=== PATIENT | male | born 1965 | race Caucasian/White ===

== ENCOUNTER 2019-12-03 14:12 | Inpatient (IN) | payer OTHER ==
[2019-12-03] MEDS ORDERED: Acetaminophen 500 MG TAB ONE (14:29)
[2019-12-03] MEDS ORDERED: Cefepime 2 GM VIAL ONE (14:29)
[2019-12-03] MEDS ORDERED: Vancomycin 1 GM/200 ML BAG ONE (14:29)
[2019-12-03 14:55] LABS: Hemoglobin 16.6 g/dL (14.0-18.0); Mean Corpuscular Hemoglobin 28.7 pg (27.0-31.0); Mean Corpuscular Volume 89.7 fL (78.0-98.0); Mean Platelet Volume 7.6 fL (7.4-10.4); Platelet Count 450 thou/uL (130-400); RBC Distribution Width 12.1 % (11.5-14.5); Red Blood Cell (RBC) Count 5.79 mill/uL (4.70-6.10); White Blood Cell (WBC) Count 15.1 thou/uL (4.8-10.8)
[2019-12-03 15:11] LABS: Band 21 % (5-11); Eosinophils 1 % (0-10); Lymphocytes 5 % (21-51); MDiff Complete? YES; Metamyelocyte 1 % (0-0); Monocytes 7 % (0-10); Neutrophil 65 % (42-75); Platelet Morphology Comment Appears Increased; RBC Morphology Normal
[2019-12-03 15:24] LABS: ALT (SGPT) 85 U/L (8-55); AST (SGOT) 75 U/L (5-34); Albumin 3.6 g/dL (3.5-5.0); Alkaline Phosphatase 110 U/L (40-110); Anion Gap 18 mmol/L (10-20); BUN (Urea Nitrogen) 21 mg/dL (8.4-25.7); Bilirubin, Total 1.5 mg/dL (0.2-1.2); Calc. Creatinine Clearance 0 mL/min (70-130); Calcium 9.5 mg/dL (7.8-10.44); Carbon Dioxide 23 mmol/L (22-29); Chloride 99 mmol/L (98-107); Estimated GFR-MDRD 65; Globulin 4.6 g/dL (2.4-3.5); Glucose 109 mg/dL (70-105); Potassium 3.7 mmol/L (3.5-5.1); Protein, Total 8.2 g/dL (6.0-8.3); Sodium 136 mmol/L (136-145)
--- NOTE | 2019-12-03 16:29 | PDOC.FPRHP ---
- History of Present Illness Chief Complaint: cough History of Present Illness: 54yo previously healthy M presents with 14 day hx of cough, fever, ( consistently above 101), generalized weakness, and decrease PO solid intake. Pt denies SOB or CP. 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 Denies any other related symptoms. Tylenol is somewhat palliating. No other transforming factors. ED Course: Pt was given 1g Tylenol PO, 1L NS IV, 2g Cefepime IV, and 1g Vanc IV - Allergies/Adverse Reactions Allergies Allergy/AdvReac Type Severity Reaction Status Date / Time No Known Allergies Allergy Unverified 12/03/19 20:18 - Home Medications Medication Instructions Recorded Confirmed Type Acetaminophen [Tylenol Extra 1,000 mg PO Q6H PRN tab 12/06/19 Rx Strength] Amoxicillin 1,000 mg PO TID #12 tablet 12/06/19 Rx Azithromycin 250 mg PO DAILY #2 tablet 12/06/19 Rx Benzonatate [Tessalon] 100 mg PO Q4H PRN #36 cap 12/06/19 Rx - History PMHx: none PSHx: Hernia repair FHx: non contributory Social: denies TAD Allergies: NKDA CODE: FULL - Review of Systems General: reports: fever/chills, weight/appetite/sleep changes Eyes: denies: eye pain, vision changes ENT: denies: nasal congestion, rhinorrhea Respiratory: reports: cough, congestion. denies: shortness of breath Cardiovascular: denies: chest pain, palpitation Gastrointestinal: denies: nausea, vomiting Genitourinary: denies: incontinence, dysuria Skin: denies: rashes, lesions Musculoskeletal: denies: pain, tenderness Neurological: denies: syncope, seizure Psychological: denies: anxiety, depression - Vital signs BP: 138/88 HR: 77 RR: 24 Tmax: 100.4 Pox: 93% on 3L Wt: 90.72kg - Physical Exam Constitutional: awake, alert and oriented, other (mild distress, diaphoretic) HEENT: EOMI, grossly normal vision, grossly normal hearing Neck: supple, trachea midline Chest: no lesions Heart: RRR, normal S1/S2 Lungs: no wheezing -Lungs: bilateral inspiratory and expiratory crackles diffusely, egophany wnl Abdomen: soft, non-tender Musculoskeletal: normal structure, normal tone Neurological: no focal deficit, normal sensation Skin: no rash/lesions, good turgor Heme/Lymphatic: no unusual bruising or bleeding, no purpura Psychiatric: normal mood and affect, good judgment and insight FMR H&P: Results - Labs Result Diagrams: 12/06/19 06:31 12/06/19 06:31 Lab results: WBC 15.1 thou/uL (4.8-10.8) H 12/03/19 14:38 Hgb 16.6 g/dL (14.0-18.0) 12/03/19 14:38 Hct 51.9 % (42.0-52.0) 12/03/19 14:38 MCV 89.7 fL (78.0-98.0) 12/03/19 14:38 Plt Count 450 thou/uL (130-400) H 12/03/19 14:38 Band Neuts % (Manual) 21 % (5-11) H 12/03/19 14:38 Sodium 136 mmol/L (136-145) 12/03/19 14:38 Potassium 3.7 mmol/L (3.5-5.1) 12/03/19 14:38 Chloride 99 mmol/L (98-107) 12/03/19 14:38 Carbon Dioxide 23 mmol/L (22-29) 12/03/19 14:38 BUN 21 mg/dL (8.4-25.7) 12/03/19 14:38 Creatinine 1.16 mg/dL (0.7-1.3) 12/03/19 14:38 Glucose 109 mg/dL (70-105) H 12/03/19 14:38 Lactic Acid 1.5 mmol/L (0.5-2.2) 12/03/19 14:38 Calcium 9.5 mg/dL (7.8-10.44) 12/03/19 14:38 Total Bilirubin 1.5 mg/dL (0.2-1.2) H 12/03/19 14:38 AST 75 U/L (5-34) H 12/03/19 14:38 ALT 85 U/L (8-55) H 12/03/19 14:38 Alkaline Phosphatase 110 U/L (40-110) 12/03/19 14:38 Serum Total Protein 8.2 g/dL (6.0-8.3) 12/03/19 14:38 Albumin 3.6 g/dL (3.5-5.0) 12/03/19 14:38 - EKG Interpretation EKG: NSR at rate of 100, no ST changes noted. FMR H&P: A/P - Problem List (1) Sepsis with acute hypoxic respiratory failure Status: Acute Code(s): A41.9 - SEPSIS, UNSPECIFIED ORGANISM; R65.20 - SEVERE SEPSIS WITHOUT SEPTIC SHOCK; J96.01 - ACUTE RESPIRATORY FAILURE WITH HYPOXIA - Plan Sepsis and hypoxic respiratory failure 2/2 suspected COVID-19 vs. CAP A- requiring 3L NC in ER. Physical exam impressive as well as CXR with infiltrate and pattern characteristic of covid infection. Labs significant for leukocytosis with lymphopenia. Will treat for CAP and test for COVID-19. pt got cefepime 1L IVF and vanc in ER P- azithro and rocephin -PO hydration, BP stable -BCx -RVP -COVID-19 -covid labs: ddimer, ferritin, LDH, CRP, mag, phos, procal CODE: FULL dispo: inpt, medical IVF: KVO diet: regular Addendum - Attending - Attending Attestation Date/Time: 12/27/192052 I personally evaluated the patient and discussed the management with Dr. Hugo on 12/03/19. I agree with the History, Examination, Assessment and Plan documented above with any addition or exceptions noted below. 54 y.o. WM w/o sig PMH here with cough, fever, congestion and low SaO2 on RA. Will treat for atypical PNA and r/o COVID as PUI.
[2019-12-03 20:30] VITALS: BMI 26.6
[2019-12-03 20:54] LABS: INR-International Normal Ratio 1.2; PTT 34.3 SEC (22.9-36.1); Prothrombin Time 15.3 SEC (12.0-14.7)
[2019-12-03 20:55] LABS: D-Dimer Test 1.92 *mcg/mL (0.27-0.43)
[2019-12-03 21:06] LABS: Magnesium 2.6 mg/dL (1.6-2.6); Phosphorus 3.9 mg/dL (2.3-4.7)
[2019-12-03] MEDS: cefTRIAXone\\ROCEPHIN 1 GM in Sodium Chloride 0.9% 100 ML IVPB SCH (21:15)
[2019-12-03] MEDS: Azithromycin 500 MG in Sodium Chloride 0.9% 250 ML 250 ML IVPB SCH (21:15)
[2019-12-03] MEDS: Benzonatate 100 MG CAP PO PRN (23:37)
[2019-12-03] MEDS: Acetaminophen 500 MG TAB PO PRN (23:37)
[2019-12-04 02:54] LABS: Strep pneumo Urine Ag NEGATIVE (NEGATIVE)
[2019-12-04 02:55] LABS: Legionella Urinary Ag Negative (Negative)
[2019-12-04 05:48] LABS: Anion Gap 12 mmol/L (10-20); BUN (Urea Nitrogen) 18 mg/dL (8.4-25.7); Calc. Creatinine Clearance 107 mL/min (70-130); Calcium 8.6 mg/dL (7.8-10.44); Carbon Dioxide 26 mmol/L (22-29); Chloride 103 mmol/L (98-107); Estimated GFR-MDRD 80; Glucose 104 mg/dL (70-105); Potassium 4.2 mmol/L (3.5-5.1); Sodium 137 mmol/L (136-145)
[2019-12-04 06:04] LABS: #Eosinphils 0.1 thou/uL (0.0-0.7); #Lymphocytes 0.8 thou/uL (1.20-3.40); #Monocytes 0.9 thou/uL (0.11-0.59); #Neutrophils 9.5 thou/uL (1.40-6.50); %Basophils 0.4 % (0.0-1.0); %Monocytes 8.1 % (0.0-10.0); %Neutrophils 83.6 % (42.0-75.0); Hemoglobin 14.5 g/dL (14.0-18.0); Mean Corpuscular HGB CONC 32.2 g/dL (32.0-36.0); Mean Corpuscular Volume 90.3 fL (78.0-98.0); Mean Platelet Volume 7.5 fL (7.4-10.4); Platelet Count 348 thou/uL (130-400); White Blood Cell (WBC) Count 11.4 thou/uL (4.8-10.8)
[2019-12-04] MEDS: Enoxaparin Sodium 40 MG/0.4 ML SYRINGE SC SCH (08:57)
[2019-12-04] MEDS: Benzonatate 100 MG CAP PO PRN ×3 (08:57→20:52)
--- NOTE | 2019-12-04 09:17 | PDOC.FM ---
- Subjective Subjective: stable from yesterday, reports no new problems, improvement on subjective fevers , no sob, stable cough. - Objective Vital Signs & Weight: Vital Signs (12 hours) Temp Pulse Resp BP Pulse Ox 12/04/19 04:00 98.5 F 73 18 93 L 12/04/19 02:32 98.5 F 83 18 91 L 12/04/19 00:40 101 F H 94 18 90 L 12/03/19 23:57 101.9 F H 96 18 148/89 H 91 L 12/03/19 21:39 95 Weight Weight 88.904 kg Result Diagrams: 12/06/19 06:31 12/06/19 06:31 Phys Exam - Physical Examination Constitutional: NAD HEENT: moist MMs, sclera anicteric Neck: supple, full ROM Respiratory: no wheezing bilat diffuse crackles Cardiovascular: RRR, no significant murmur Gastrointestinal: soft, non-tender Musculoskeletal: no edema, pulses present Neurological: non-focal, normal sensation Psychiatric: normal affect, A&O x 3 Skin: no rash, normal turgor Dx/Plan (1) Sepsis with acute hypoxic respiratory failure Code(s): A41.9 - SEPSIS, UNSPECIFIED ORGANISM; R65.20 - SEVERE SEPSIS WITHOUT SEPTIC SHOCK; J96.01 - ACUTE RESPIRATORY FAILURE WITH HYPOXIA Status: Acute - Plan Plan: Sepsis and hypoxic respiratory failure 2/2 suspected COVID-19 vs. CAP A- stable. requiring 3L NC. Physical exam impressive as well as CXR with infiltrate and pattern characteristic of covid infection. Labs significant for leukocytosis with lymphopenia. pt got cefepime 1L IVF and vanc in ER P- azithro and rocephin -PO hydration, BP stable -f/u BCx -f/u COVID-19 CODE: FULL IVF: KVO diet: regular Addendum - Attending - Attending Attestation Date/Time: 12/27/19 1950 I personally evaluated the patient and discussed the management with Dr. Hugo on 12/04/19. I agree with the History, Examination, Assessment and Plan documented above with any addition or exceptions noted below. Fever w/in last 24 hrs. Remains on O2 dependent to keep SaO2. COVID pending. Continue current care.
[2019-12-04] MEDS: Acetaminophen 500 MG TAB PO PRN ×3 (09:27→20:52)
[2019-12-04] MEDS: Azithromycin 500 MG in Sodium Chloride 0.9% 250 ML 250 ML IVPB SCH (20:52)
[2019-12-04] MEDS: cefTRIAXone\\ROCEPHIN 1 GM in Sodium Chloride 0.9% 100 ML IVPB SCH (20:52)
[2019-12-05] MEDS: Benzonatate 100 MG CAP PO PRN ×5 (04:48→22:07)
[2019-12-05 06:36] LABS: #Eosinphils 0.2 thou/uL (0.0-0.7); #Lymphocytes 0.7 thou/uL (1.20-3.40); #Monocytes 0.7 thou/uL (0.11-0.59); #Neutrophils 7.5 thou/uL (1.40-6.50); %Basophils 0.2 % (0.0-1.0); %Eosinophils 2.4 % (0.0-10.0); %Lymphocytes 7.3 % (21.0-51.0); %Monocytes 7.9 % (0.0-10.0); %Neutrophils 82.1 % (42.0-75.0); Hemoglobin 14.4 g/dL (14.0-18.0); Mean Corpuscular HGB CONC 32.7 g/dL (32.0-36.0); Mean Corpuscular Hemoglobin 29.6 pg (27.0-31.0); Mean Corpuscular Volume 90.6 fL (78.0-98.0); Mean Platelet Volume 7.2 fL (7.4-10.4); Platelet Count 355 thou/uL (130-400); Red Blood Cell (RBC) Count 4.87 mill/uL (4.70-6.10); White Blood Cell (WBC) Count 9.1 thou/uL (4.8-10.8)
[2019-12-05 06:59] LABS: Anion Gap 15 mmol/L (10-20); BUN (Urea Nitrogen) 17 mg/dL (8.4-25.7); Calc. Creatinine Clearance 126 mL/min (70-130); Calcium 8.8 mg/dL (7.8-10.44); Carbon Dioxide 25 mmol/L (22-29); Chloride 103 mmol/L (98-107); Estimated GFR-MDRD Greater than 90; Glucose 93 mg/dL (70-105); Potassium 3.7 mmol/L (3.5-5.1); Sodium 139 mmol/L (136-145)
[2019-12-05] MEDS: Enoxaparin Sodium 40 MG/0.4 ML SYRINGE SC SCH (08:47)
--- NOTE | 2019-12-05 10:00 | PDOC.FM ---
- Subjective Subjective: Pt reports Sx are stable from admission, perhaps mild improvement, denies new problems - Objective Vital Signs & Weight: Vital Signs (12 hours) Temp Pulse Resp BP Pulse Ox 12/05/19 08:00 98.6 F 78 16 130/78 94 L 12/05/19 04:00 98.6 F 76 18 144/79 H 92 L 12/05/19 00:00 97.7 F 67 18 92 L Weight Admit Weight 88.904 kg Weight 88.904 kg Result Diagrams: 12/06/19 06:31 12/06/19 06:31 Phys Exam - Physical Examination Constitutional: NAD HEENT: moist MMs, sclera anicteric Neck: no nodes, no JVD Respiratory: no wheezing bilat diffuse crackles Cardiovascular: RRR, no significant murmur Gastrointestinal: soft, non-tender Musculoskeletal: no edema, pulses present Neurological: normal sensation, moves all 4 limbs Psychiatric: normal affect, A&O x 3 Skin: no rash, normal turgor Dx/Plan (1) Sepsis with acute hypoxic respiratory failure Code(s): A41.9 - SEPSIS, UNSPECIFIED ORGANISM; R65.20 - SEVERE SEPSIS WITHOUT SEPTIC SHOCK; J96.01 - ACUTE RESPIRATORY FAILURE WITH HYPOXIA Status: Acute - Plan Plan: Sepsis and hypoxic respiratory failure 2/2 suspected COVID-19 vs. CAP A- stable. requiring 3L NC. Physical exam impressive as well as CXR with infiltrate and pattern characteristic of covid infection. Labs significant for leukocytosis with lymphopenia. pt got cefepime 1L IVF and vanc in ER P- azithro and rocephin -PO hydration, BP stable -f/u BCx -f/u COVID-19 CODE: FULL IVF: KVO diet: regular Addendum - Attending - Attending Attestation Date/Time: 12/28/19 1105 I personally evaluated the patient and discussed the management with Dr. Hugo on 12/05/19. I agree with the History, Examination, Assessment and Plan documented above with any addition or exceptions noted below. Unchanged. On O2. COVID pending.
[2019-12-05] MEDS: Azithromycin 500 MG in Sodium Chloride 0.9% 250 ML 250 ML IVPB SCH (20:32)
[2019-12-05] MEDS: PROVENTIL INHALER 6.7 G (200 INHALATIONS) INH SCH (20:33)
[2019-12-05] MEDS: cefTRIAXone\\ROCEPHIN 1 GM in Sodium Chloride 0.9% 100 ML IVPB SCH (22:06)
[2019-12-06] MEDS: Benzonatate 100 MG CAP PO PRN ×2 (04:03→09:11)
[2019-12-06] MEDS: PROVENTIL INHALER 6.7 G (200 INHALATIONS) INH SCH (05:59)
[2019-12-06 06:50] LABS: #Basophils 0.1 thou/uL (0.0-0.2); #Eosinphils 0.2 thou/uL (0.0-0.7); #Monocytes 0.7 thou/uL (0.11-0.59); #Neutrophils 6.5 thou/uL (1.40-6.50); %Basophils 0.9 % (0.0-1.0); %Eosinophils 2.2 % (0.0-10.0); %Lymphocytes 11.5 % (21.0-51.0); %Monocytes 8.6 % (0.0-10.0); %Neutrophils 76.8 % (42.0-75.0); Hemoglobin 14.3 g/dL (14.0-18.0); Mean Corpuscular HGB CONC 32.4 g/dL (32.0-36.0); Mean Corpuscular Hemoglobin 29.5 pg (27.0-31.0); Mean Corpuscular Volume 91.1 fL (78.0-98.0); Mean Platelet Volume 7.2 fL (7.4-10.4); Platelet Count 404 thou/uL (130-400); RBC Distribution Width 12.1 % (11.5-14.5); Red Blood Cell (RBC) Count 4.85 mill/uL (4.70-6.10); White Blood Cell (WBC) Count 8.5 thou/uL (4.8-10.8)
[2019-12-06 07:08] LABS: Anion Gap 13 mmol/L (10-20); BUN (Urea Nitrogen) 15 mg/dL (8.4-25.7); Calc. Creatinine Clearance 130 mL/min (70-130); Calcium 8.6 mg/dL (7.8-10.44); Carbon Dioxide 25 mmol/L (22-29); Chloride 104 mmol/L (98-107); Estimated GFR-MDRD Greater than 90; Glucose 93 mg/dL (70-105); Potassium 3.7 mmol/L (3.5-5.1); Sodium 138 mmol/L (136-145)
[2019-12-06] MEDS: Enoxaparin Sodium 40 MG/0.4 ML SYRINGE SC SCH (09:10)
--- NOTE | 2019-12-06 09:21 | PDOC.FM ---
- Subjective Subjective: pt feels improved from yesterday, now on RA. no new complaints - Objective Vital Signs & Weight: Vital Signs (12 hours) Temp Pulse Resp BP Pulse Ox 12/06/19 04:16 98.7 F 73 18 125/80 92 L 12/05/19 23:24 98.3 F 61 20 131/84 93 L Weight Admit Weight 88.904 kg Weight 88.904 kg Result Diagrams: 12/06/19 06:31 12/06/19 06:31 Phys Exam - Physical Examination Constitutional: NAD HEENT: moist MMs, sclera anicteric Neck: no JVD, supple Respiratory: no wheezing bilat diffuse fine crackles Cardiovascular: RRR, no significant murmur Gastrointestinal: soft, non-tender Musculoskeletal: no edema, pulses present Neurological: normal sensation, moves all 4 limbs Psychiatric: normal affect, A&O x 3 Dx/Plan (1) Sepsis with acute hypoxic respiratory failure Code(s): A41.9 - SEPSIS, UNSPECIFIED ORGANISM; R65.20 - SEVERE SEPSIS WITHOUT SEPTIC SHOCK; J96.01 - ACUTE RESPIRATORY FAILURE WITH HYPOXIA Status: Acute - Plan Plan: Sepsis and hypoxic respiratory failure 2/2 suspected COVID-19 vs. CAP A- improved clinically, covid test is negative however Physical exam impressive as well as CXR with infiltrate and pattern characteristic of covid infection. Labs significant for leukocytosis with lymphopenia. pt got cefepime 1L IVF and vanc in ER P- azithro and rocephin -PO hydration, BP stable -consider retesting COVID-19 -possible DC home CODE: FULL IVF: KVO diet: regular
[2019-12-06 15:31] VITALS: BP 129/83; TEMP 97.6
--- NOTE | 2019-12-06 21:06 | DIS ---
DATE OF ADMISSION: 12/03/2019 DATE OF DISCHARGE: 12/06/2019 RESIDENT: Ricci Hugo MD I personally saw this patient for a total of 4 days. ADMITTING ATTENDING: Ricci Palomino MD DISCHARGE ATTENDING: Ricci Palomino MD CONSULTS: None. PROCEDURES: On 12/03/2019, chest x-ray; impression, questionable and minimally increased interstitial lung changes in the left mid lung field. There is some minimal increased density in the left mid lung field. This could represent subtle ground-glass changes of COVID. DISCHARGE MEDICATIONS: 1. Amoxicillin 1000 mg p.o. t.i.d. x2 more days. 2. Azithromycin 250 mg p.o. daily x2 days. 3. Tessalon 100 mg p.o. q.4 hours p.r.n., 36 tablets. DISCONTINUED MEDICATIONS: None. PRIMARY DIAGNOSES: Sepsis and hypoxic respiratory failure secondary to community-acquired pneumonia. SECONDARY DIAGNOSIS: None. HISTORY OF PRESENT ILLNESS AND HOSPITAL COURSE: This is a 54-year-old male who presented for fever, upper respiratory tract infection symptoms, and shortness of breath and was admitted for sepsis and hypoxic respiratory failure secondary to either a pneumonia or pneumonia and COVID-19. The patient had already had one outpatient test earlier the week prior to presentation, which was negative. However, the patient had characteristic chest x-ray and lab work on presentation and therefore, I was still concerned that he may have infection. 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 The patient was treated for community-acquired pneumonia with Rocephin and azithromycin and improved rapidly going from requiring 2 to 3 L of oxygen to room air over the span of a couple of days. His COVID-19 retest came back negative also as did his blood cultures, and the patient was discharged home in stable condition with plans for 2 additional days of antibiotics and return precautions. DISPOSITION: Stable. DISCHARGE INSTRUCTIONS: 1. Location: Home. 2. Activity: As tolerated. 3. Followup: Follow up with primary care physician in 7 days. 4. Diet: Regular. Job ID: [id number]
== END 2019-12-06 15:25 | disposition home or self-care (01) | DRG 871 ==
LOC: ERS 14:12 → T4-B 16:26
PROVIDERS: ADMIT Family Medicine; ATTEND Family Medicine
PROC: 8E0ZXY6 Isolation (ICD-10-PCS; principal; 2019-12-03)
DX: A41.9 Sepsis, unspecified organism (principal); J96.01 Acute respiratory failure with hypoxia; J18.9 Pneumonia, unspecified organism; Z20.828 Contact with and (suspected) exposure to other viral communicable diseases
CPT/HCPCS: 36415; 80048; 80053; 82728; 83605; 83615; 83735; 84100; 84145; 84484; 85025; 85379; 85610; 85730; 86140; 87040; 87149; 87449; 87633; 87635; 87899; 93005; 96365; 96367; J0456; J0692; J0696; J1650; J3370; J3490; J7050; U0003

== ENCOUNTER 2022-12-20 09:08 | Observation (INO) | payer BC, OTHER ==
[2022-12-20 11:14] LABS: #Basophils 0.1 thou/uL (0.0-0.2); #Eosinphils 0.1 thou/uL (0.0-0.7); #Lymphocytes 1.8 thou/uL (1.20-3.40); #Monocytes 0.5 thou/uL (0.11-0.59); #Neutrophils 5.7 thou/uL (1.40-6.50); %Eosinophils 1.3 % (0.0-10.0); %Lymphocytes 22.2 % (21.0-51.0); %Monocytes 5.7 % (0.0-10.0); %Neutrophils 69.7 % (42.0-75.0); Hemoglobin 18.9 g/dL (14.0-18.0); Mean Corpuscular HGB CONC 34.8 g/dL (32.0-36.0); Mean Corpuscular Hemoglobin 31.5 pg (27.0-31.0); Mean Corpuscular Volume 90.5 fl (78.0-98.0); Mean Platelet Volume 7.3 fL (7.4-10.4); Platelet Count 261 10x3/uL (130-400); RBC Distribution Width 11.9 % (11.5-14.5); Red Blood Cell (RBC) Count 5.99 mill/uL (4.70-6.10); White Blood Cell (WBC) Count 8.1 10x3/uL (4.8-10.8)
[2022-12-20 11:38] LABS: ALT (SGPT) 16 U/L (8-55); AST (SGOT) 20 U/L (5-34); Albumin 3.8 g/dL (3.5-5.0); Alkaline Phosphatase 55 U/L (40-110); Anion Gap 13 mmol/L (10-20); BUN (Urea Nitrogen) 19 mg/dL (8.4-25.7); Bilirubin, Total 0.4 mg/dL (0.2-1.2); Calc. Creatinine Clearance 0 mL/min (70-130); Calcium 9.2 mg/dL (7.8-10.44); Carbon Dioxide 27 mmol/L (22-29); Chloride 105 mmol/L (98-107); Estimated GFR 59; Glucose 94 mg/dL (70-105); Lipase 21 U/L (8-78); Potassium 4.7 mmol/L (3.5-5.1); Protein, Total 6.8 g/dL (6.0-8.3); Sodium 140 mmol/L (136-145)
[2022-12-20] MEDS ORDERED: Acetaminophen 325 MG TAB PO PRN (13:55)
[2022-12-20 14:06] LABS: Troponin I 0.017 ng/mL (< 0.028)
[2022-12-20 15:14] LABS: Free T4 (Free Thyroxine) 0.94 ng/dL (0.70-1.48); Thyroid Stimulating Hormone 1.4418 uIU/mL (0.35-4.94)
[2022-12-20 15:39] LABS: Magnesium 1.7 mg/dL (1.6-2.6)
== END 2022-12-20 16:56 | disposition home or self-care (01) ==
LOC: ERS 09:08 → ERHOLD 12:13
PROVIDERS: ADMIT Internal Medicine; ATTEND Internal Medicine
DX: I48.0 Paroxysmal atrial fibrillation (principal); I49.3 Ventricular premature depolarization; I08.1 Rheumatic disorders of both mitral and tricuspid valves
CPT/HCPCS: 36415; 71045; 80053; 83690; 83735; 83880; 84439; 84443; 84481; 84484; 85025; 93005; 93306; 96360; G0378; J1650

== ENCOUNTER 2023-01-10 08:46 | Day surgery (SDC) | payer OTHER ==
[2023-01-05 08:57] VITALS: BMI 29.8
[2023-01-05 10:15] LABS: Mean Corpuscular HGB CONC 33.9 g/dL (32.0-36.0); Mean Corpuscular Hemoglobin 29.5 pg (27.0-33.0); Mean Platelet Volume 9.6 fl (7.4-10.4); Platelet Count 281 10x3/uL (150-450); RBC Distribution Width 12.9 % (11.5-14.5); Red Blood Cell (RBC) Count 5.77 10x6/uL (4.32-5.72); White Blood Cell (WBC) Count 6.3 10x3/uL (3.5-10.5)
[2023-01-05 10:25] LABS: Anion Gap 14 mmol/L (10-20); BUN (Urea Nitrogen) 16 mg/dL (8.4-25.7); Calc. Creatinine Clearance 98 mL/min (70-130); Carbon Dioxide 25 mmol/L (22-29); Chloride 105 mmol/L (98-107); Estimated GFR 73; Glucose 91 mg/dL (70-105); Potassium 4.5 mmol/L (3.5-5.1); Sodium 139 mmol/L (136-145)
[2023-01-05 10:27] LABS: Prothrombin Time 10.8 sec (9.5-12.1)
[2023-01-10] MEDS ORDERED: Heparin 25,000 units/D5W 500 ML ONE (10:18)
[2023-01-10] MEDS ORDERED: Protamine Sulfate 50 MG/5 ML VIAL ONE (10:18)
[2023-01-10] MEDS ORDERED: Heparin 10,000 UNITS/ 10 ML VIAL ONE (10:18)
[2023-01-10] MEDS ORDERED: Rocuronium Bromide 10 MG/ML (10ML VIAL) ONE (11:11)
[2023-01-10] MEDS ORDERED: NEOSTIGMINE 3 MG/3 ML SYR 3 MG/3 ML SYRINGE ONE (11:11)
[2023-01-10] MEDS ORDERED: PROPOFOL 200 MG/20 ML VIAL ONE (11:11)
[2023-01-10] MEDS ORDERED: GLYCOPYRROLATE/PF 0.2 MG/ML VIAL ONE (11:11)
[2023-01-10] MEDS ORDERED: Ondansetron PF 4 MG/2 ML Vial ONE (11:11)
[2023-01-10] MEDS ORDERED: Lidocaine 1% PF 5 ML VIAL ONE (11:11)
[2023-01-10] MEDS ORDERED: fentaNYL 50 mcg/mL 1 mL Vial ONE (11:16)
== END 2023-01-10 17:00 | disposition home or self-care (01) ==
LOC: SDC 08:46
PROVIDERS: ATTEND Internal Medicine Cardiovascular Disease
PROC: 4A0234Z Measurement of Cardiac Electrical Activity, Percutaneous Approach (ICD-10-PCS; principal; 2023-01-10)
PROC: 4A023FZ Measurement of Cardiac Rhythm, Percutaneous Approach (ICD-10-PCS; principal; 2023-01-10)
PROC: 02583ZZ Destruction of Conduction Mechanism, Percutaneous Approach (ICD-10-PCS; principal; 2023-01-10)
PROC: B246ZZ4 Ultrasonography of Right and Left Heart, Transesophageal (ICD-10-PCS; principal; 2023-01-10)
PROC: 02K83ZZ Map Conduction Mechanism, Percutaneous Approach (ICD-10-PCS; principal; 2023-01-10)
DX: I48.0 Paroxysmal atrial fibrillation (principal); R00.1 Bradycardia, unspecified; I10 Essential (primary) hypertension; E11.9 Type 2 diabetes mellitus without complications; Z79.01 Long term (current) use of anticoagulants; Z79.899 Other long term (current) drug therapy
CPT/HCPCS: 80048; 85027; 85347; 85610; 93005; 93312; 93656; C1730; C1732; C1759; C1760; C1769; C1894; C2630; J1644; J2405; J2704; J2720; J3010; J3490